=== PATIENT | female | born 1945 | race Caucasian/White ===

== ENCOUNTER → 2018-02-17 16:39 | Outpatient (CLI) | payer MEDICARE, OTHER, SELFPAY ==
--- NOTE | 2018-02-17 | DI.RAD.S_ITS ---
PROCEDURE: XR WRIST RT MIN 3V INDICATIONS: RIGHT WRIST PAIN TECHNIQUE: 4 views of the wrist were acquired. COMPARISON: None. FINDINGS: Bones: No fractures or dislocations but there is degenerative change at the distal scaphoid with several small air articular erosions, and a pattern that could simply represent degenerative osteoarthritis but does raise concern for presence of rheumatoid osteoarthritis at that site. Conventional appearing degenerative osteoarthritis is seen at the base of the first metacarpal.. No suspicious bony lesions. Scaphoid view: No trauma. Soft tissues: No suspicious soft tissue calcifications. IMPRESSION: No acute trauma found. Degenerative changes as discussed, potentially including a component of mild rheumatoid arthritis with small periarticular erosions at the distal scaphoid. Dictated by: George Will M.D. on 02/18/2018 at 8:53 Approved by: George Will M.D. on 02/18/2018 at 8:54
--- NOTE | 2018-02-17 | DI.RAD.S_ITS ---
PROCEDURE: XR HAND RT MIN 3V INDICATIONS: RIGHT HAND PAIN TECHNIQUE: 3 views of the hand(s) acquired. COMPARISON: None. FINDINGS: Bones: No fractures or dislocations. Carpal bones are normally aligned. No suspicious bony lesions. There is joint space thinning at the interphalangeal joints both distally and proximally best seen at the second distal interphalangeal joint, the second MCP joint, the third proximal interphalangeal joint and the first interphalangeal joint. There are associated mild periarticular erosions including several at the far distal margin of the scaphoid bone. Soft tissues: No suspicious soft tissue calcifications. IMPRESSION: No acute trauma found but there is evidence of a combination of both degenerative osteoarthritis and likelihood of rheumatoid osteoarthritis with mild periarticular erosions. Distal scaphoid mild periarticular erosions also appear present. Dictated by: George Will M.D. on 02/18/2018 at 8:51 Approved by: George Will M.D. on 02/18/2018 at 8:53
== END ==
PROVIDERS: Family Provider Internal Medicine; PCP Internal Medicine; Visit Provider Internal Medicine
DX: M79.641 Pain in right hand (principal); M19.041 Primary osteoarthritis, right hand; M19.031 Primary osteoarthritis, right wrist
CPT/HCPCS: 73110; 73130

== ENCOUNTER → 2018-09-19 14:38 | Outpatient (CLI) | payer MEDICARE, OTHER, SELFPAY ==
--- NOTE | 2018-09-19 | DI.US.S_ITS ---
PROCEDURE: US PERIPH VENOUS LOW EXTREM RT INDICATIONS: FOOT SWELLING TECHNIQUE: Real-time imaging, as well as color and pulse Doppler interrogation, were performed of the lower extremity deep veins from the inguinal ligament to the popliteal fossa. COMPARISON: [facility], , PVE UNILATERAL LEFT, 10/15/2016, 17:01. FINDINGS: The common femoral, femoral and popliteal veins are normally compressible, and free of intraluminal thrombus. Color and pulse Doppler demonstrate normal phasic intraluminal flow. There is normal augmentation response to distal compression maneuver. Incidental note is made of a encarnacion cyst within the right popliteal fossa. IMPRESSION: No evidence for deep vein thrombosis within the right lower extremity. Dictated by: Reji Hardin M.D. on 09/19/2018 at 15:04 Approved by: Reji Hardin M.D. on 09/19/2018 at 15:04
--- NOTE | 2018-09-19 | DI.RAD.S_ITS ---
PROCEDURE: XR FOOT RT MIN 3V INDICATIONS: FOOT SWELLING TECHNIQUE: 3 views of the foot were acquired. COMPARISON: None. FINDINGS: Bones: No fractures or dislocations. No suspicious bony lesions. Plantar calcaneal spur. Severe first MTP joint degeneration. Severe PIP joint degeneration of the fourth toe. Elsewhere, diffuse interphalangeal joint degeneration. Accessory navicular which may be partially fused. Soft tissues: No tibiotalar joint effusion. Achilles tendon appears normal. 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 Plantar calcaneal spur. Dictated by: Martín Thompson M.D. on 09/19/2018 at 16:16 Approved by: Martín Thompson M.D. on 09/19/2018 at 16:19
[2018-09-19 18:02] LABS: Alanine Aminotransferase 27 IU/L (9-52); Albumin 4.1 g/dL (3.5-5.0); Albumin Globulin Ratio 1.6 (1.0-2.8); Alkaline Phosphatase 108 U/L (38-126); Aspartate Aminotransferase 29 IU/L (14-36); BUN Creatinine Ratio 18.3 (6-22); Bilirubin Total 0.6 mg/dL (0.2-1.3); Blood Urea Nitrogen 11 mg/dL (7-17); Calcium 9.4 mg/dL (8.4-10.2); Carbon Dioxide 30 mmol/L (22-32); Chloride 97 mmol/L (98-107); Estimated Glomerular Filt Rate > 60.0 mL/min (>60); Globulin 2.6 g/dL (1.7-4.1); Glucose 90 mg/dL (80-110); HEMOLYSIS < 15 (0-50); Potassium 4.1 mmol/L (3.4-5.1); Sodium 135 mmol/L (137-145); Total Protein 6.7 g/dL (6.3-8.2)
[2018-09-19 18:51] LABS: Vitamin B12 425 pg/mL (239-931)
[2018-09-22 21:32] LABS: Albumin 3.8 g/dL (3.8-4.8); Alpha 1 Globulin 0.3 g/dL (0.2-0.3); Alpha 2 Globulin 0.7 g/dL (0.5-0.9); Beta 1 Globulin 0.5 g/dL (0.4-0.6); Protein, Total 6.6 g/dL (6.1-8.1)
== END ==
PROVIDERS: PCP Internal Medicine; Visit Provider Internal Medicine
DX: M79.89 Other specified soft tissue disorders (principal); M79.671 Pain in right foot; M19.071 Primary osteoarthritis, right ankle and foot; M77.31 Calcaneal spur, right foot; G62.9 Polyneuropathy, unspecified; M71.21 Synovial cyst of popliteal space [Baker], right knee
CPT/HCPCS: 36415; 73630; 80053; 82607; 84155; 84165; 93971

== ENCOUNTER → 2021-04-15 15:01 | Outpatient (CLI) | payer MEDICARE, OTHER, SELFPAY ==
--- NOTE | 2021-04-15 15:06 | DI.RAD.S_ITS ---
PROCEDURE: XR CERVICAL SPINE 2V OR 3V INDICATIONS: NECK PAIN TECHNIQUE: 3 view(s) of the cervical spine were acquired. COMPARISON: None. FINDINGS: Bones: No fractures or dislocations to the C7 level. The lateral masses of C1 appear intact on the odontoid view. Moderate disc height loss with sclerosis of the endplates at C5-6 with small posterior disc osteophytes and uncovertebral/facet arthrosis. Soft tissues: No prevertebral soft tissue swelling. IMPRESSION: Osteoarthrosis as detailed above. Dictated by: Deon Sun M.D. on 04/15/2021 at 15:32 Approved by: Deon Sun M.D. on 04/15/2021 at 15:34
== END ==
PROVIDERS: PCP Internal Medicine; Referring Provider Internal Medicine; Visit Provider Internal Medicine
DX: M54.2 Cervicalgia (principal); M47.812 Spondylosis without myelopathy or radiculopathy, cervical region
CPT/HCPCS: 72040

== ENCOUNTER → 2021-11-07 11:05 | Outpatient (CLI) | payer MEDICARE, OTHER, SELFPAY | PROVIDERS: PCP Internal Medicine; Referring Provider Internal Medicine; Visit Provider Internal Medicine | DX: M85.851 Other specified disorders of bone density and structure, right thigh (principal); Z13.820 Encounter for screening for osteoporosis; M85.852 Other specified disorders of bone density and structure, left thigh; Z78.0 Asymptomatic menopausal state; Z92.23 Personal history of estrogen therapy | CPT/HCPCS: 77080 ==

== ENCOUNTER → 2023-09-06 13:19 | Outpatient (CLI) | payer MEDICARE, OTHER, SELFPAY | PROVIDERS: PCP Student in an Organized Health Care Education/Training Program; Referring Provider Internal Medicine Pulmonary Disease; Visit Provider Internal Medicine Pulmonary Disease | DX: J44.89 Other specified chronic obstructive pulmonary disease (principal); Z87.891 Personal history of nicotine dependence | CPT/HCPCS: 94060 ==